=== PATIENT | male | born 2005 | race Asian ===

== ENCOUNTER 2025-04-14 17:40 | Emergency (ER) | payer BC ==
[~2025-04-14] VITALS: Ht 172.7 cm; Wt 67.0 kg
[2025-04-14] MEDS ORDERED: MORPHINE SULFATE 4 MG/ML INJ (FOR IV/IM USE) IV STA (19:00)
[2025-04-14] MEDS ORDERED: ETOMIDATE 2MG/ML 10ML VIAL IV ONE (19:00)
[2025-04-14] MEDS ORDERED: ONDANSETRON HCL 4MG/2ML INJ IV STA (19:00)
[2025-04-14 19:35] VITALS: TEMP 37.2
[2025-04-14] MEDS: MORPHINE SULFATE 4 MG/ML INJ (FOR IV/IM USE) IV STA (20:23)
[2025-04-14] MEDS: ONDANSETRON HCL 4MG/2ML INJ IV STA (20:23)
[2025-04-14] MEDS: SODIUM CHLORIDE 0.9% 1,000 ML IV ONE (20:24)
[2025-04-14 20:33] VITALS: TEMP 98.9
[2025-04-14 21:08] VITALS: PULSE 77; RESP 16; O2SAT 98
[2025-04-14] MEDS ORDERED: IBUP-2028 MT (21:53)
[2025-04-14] MEDS ORDERED: ACET-2708 MT (21:53)
[2025-04-14 22:45] VITALS: BP 135/30; PULSE 77; RESP 16; O2SAT 98
== END 2025-04-14 23:31 | disposition home or self-care (01) ==
LOC: ER 17:40
DX: S52.612A Displaced fracture of left ulna styloid process, initial encounter for closed fracture (principal); Z79.899 Other long term (current) drug therapy; V00.148A Other scooter (nonmotorized) accident, initial encounter; Y93.89 Activity, other specified; Y92.89 Other specified places as the place of occurrence of the external cause; Y99.8 Other external cause status
CPT/HCPCS: 73090; 73100; 73110; 25605; 96360; 99152; 99285; J3490; J2405; J2270; J7030; Z7610 ×3; A6449; 94070; 94664; 94760; A4565